=== PATIENT | female | born 1970 | race Caucasian/White ===

== ENCOUNTER 2018-06-12 22:53 | Emergency (ER) | payer OTHER ==
[~2018-06-12] VITALS: Ht 160 cm; Wt 104.3 kg
[~2018-06-12 22:53] MED LIST: CIPR-211 PO; HYDR-1189 PO; IBUP-1970 PO; LEVO500T20 PO; ONDA4TAB5 PO; TAMS-11 PO
[2018-06-12 23:15] VITALS: BP_SYST 147
[2018-06-13] MEDS ORDERED: KETOROLAC TROMETHAMINE 60 MG/2 ML VIAL IM ONE (00:45)
[2018-06-13 01:58] VITALS: BP_SYST 147
== END 2018-06-13 01:58 | disposition home or self-care (01) ==
LOC: SED 22:53
DX: S80.01XA Contusion of right knee, initial encounter (principal); Z88.1 Allergy status to other antibiotic agents; Z79.899 Other long term (current) drug therapy; R03.0 Elevated blood-pressure reading, without diagnosis of hypertension; W19.XXXA Unspecified fall, initial encounter; Y93.89 Activity, other specified; Y92.89 Other specified places as the place of occurrence of the external cause; Y99.8 Other external cause status
CPT/HCPCS: 29505; 73560; 96372; 99284; J1885